=== PATIENT | female | born 1965 | race Caucasian/White ===

== ENCOUNTER → 2017-01-01 | Day surgery (SDC) | payer BC ==
[~2017-01-01] MED LIST: IMITREX100 MG PO; NAPROSYN EC 50500 MG PO; OMEPRAZOLE20 M1 PO; VITAMIN D50000 UNIT PO
== END | disposition home or self-care (01) ==
LOC: OR 08:38
PROVIDERS: Internal Medicine Gastroenterology
PROC: 0D738ZZ Dilation of Lower Esophagus, Via Natural or Artificial Opening Endoscopic (ICD-10-PCS; 2017-01-01)
PROC: 0D748ZZ Dilation of Esophagogastric Junction, Via Natural or Artificial Opening Endoscopic (ICD-10-PCS; principal; 2017-01-01 14:30)
DX: K22.2 Esophageal obstruction (principal); K44.9 Diaphragmatic hernia without obstruction or gangrene; K21.9 Gastro-esophageal reflux disease without esophagitis; G43.909 Migraine, unspecified, not intractable, without status migrainosus; M19.90 Unspecified osteoarthritis, unspecified site; E66.3 Overweight; Z68.29 Body mass index [BMI] 29.0-29.9, adult; Z86.73 Personal history of transient ischemic attack (TIA), and cerebral infarction without residual deficits; Z83.3 Family history of diabetes mellitus; Z82.49 Family history of ischemic heart disease and other diseases of the circulatory system; Z88.2 Allergy status to sulfonamides; Z79.899 Other long term (current) drug therapy; Z98.51 Tubal ligation status; Z98.890 Other specified postprocedural states
CPT/HCPCS: J2250; J3010; J7030

== ENCOUNTER → 2017-01-15 | Day surgery (SDC) | payer BC ==
[~2017-01-15] VITALS: Ht 160 cm; Wt 74.8 kg
== END | disposition home or self-care (01) ==
LOC: OR 06:33
PROVIDERS: Internal Medicine Gastroenterology
PROC: 0DJD8ZZ Inspection of Lower Intestinal Tract, Via Natural or Artificial Opening Endoscopic (ICD-10-PCS; principal; 2017-01-15 08:00)
DX: Z12.11 Encounter for screening for malignant neoplasm of colon (principal); K64.0 First degree hemorrhoids; M19.90 Unspecified osteoarthritis, unspecified site; Z88.2 Allergy status to sulfonamides; Z79.52 Long term (current) use of systemic steroids; Z79.899 Other long term (current) drug therapy; Z98.51 Tubal ligation status; Z98.818 Other dental procedure status; Z87.19 Personal history of other diseases of the digestive system; Z86.73 Personal history of transient ischemic attack (TIA), and cerebral infarction without residual deficits
CPT/HCPCS: J7030

== ENCOUNTER → 2021-04-29 | Outpatient (CLI) | payer BC | LOC: US 04-17 08:00 | DX: R74.8 Abnormal levels of other serum enzymes (principal); K76.0 Fatty (change of) liver, not elsewhere classified | CPT/HCPCS: 76705 ==

== ENCOUNTER → 2021-05-28 | Outpatient (CLI) | payer BC ==
[2021-05-28 10:22] LABS: HEMOGLOBIN 13.7 gm/dl (12.3-15.3); RED BLOOD COUNT 4.46 M/UL (4.00-5.10); WHITE BLOOD COUNT 4.6 K/UL (4.5-11.0)
[2021-05-28 11:07] LABS: BUN/CREATININE RATIO 12 (0-10)
[2021-05-29 17:09] LABS: ENDOMYSIAL ANTIBODY IGA Negative (Negative); IMMUNOGLOBULIN A, QN, SERUM 185 mg/dL (87-352); T-TRANSGLUTAMINASE (TTG) IGA <2 U/mL (0-3); T-TRANSGLUTAMINASE (TTG) IGG <2 U/mL (0-5)
[2021-05-30 04:09] LABS: (LD) FRACTION 1 19 % (17-32); (LD) FRACTION 2 27 % (25-40); (LD) FRACTION 3 20 % (17-27); (LD) FRACTION 4 9 % (5-13); (LD) FRACTION 5 25 % (4-20); CK-BB 0 % (0); CK-MB 0 % (0-3); CK-MM 100 % (97-100); LDH 163 IU/L (119-226); MACRO TYPE 1 0 % (Not Observed); MACRO TYPE 2 0 % (Not Observed)
== END ==
LOC: LAB 08:45
PROVIDERS: Nurse Practitioner Family
DX: R07.9 Chest pain, unspecified (principal); R06.02 Shortness of breath; R13.10 Dysphagia, unspecified; R14.0 Abdominal distension (gaseous)
CPT/HCPCS: 36415; 71046; 80053; 82550; 82552; 82784; 83615; 83625; 84439; 84443; 85025

== ENCOUNTER → 2021-06-20 | Outpatient (CLI) | payer BC | LOC: MAMO 13:58 | DX: Z12.31 Encounter for screening mammogram for malignant neoplasm of breast (principal) | CPT/HCPCS: 77063; 77067 ==

== ENCOUNTER → 2021-07-31 | Day surgery (SDC) | payer BC ==
[~2021-07-31] MED LIST changes: +AMITRIPTYLINE H50 MG PO; +CRESTOR10 MG PO; +HYDROCHLOROTH12.5 M1 PO; +LAMOTRIGINE25 MG PO; +LOSARTAN POTASS50 MG PO; +OMEPRAZOLE20 M2 PO; +ST. JOSEPH ASPI81 MG PO; +WAL-ZYR10 M1 PO; +XANAX0.25 MG PO
== END | disposition home or self-care (01) ==
LOC: OR 07:27
DX: K22.2 Esophageal obstruction (principal); K21.00 Gastro-esophageal reflux disease with esophagitis, without bleeding; K44.9 Diaphragmatic hernia without obstruction or gangrene; K76.0 Fatty (change of) liver, not elsewhere classified; E66.9 Obesity, unspecified; Z88.2 Allergy status to sulfonamides; Z79.82 Long term (current) use of aspirin; Z98.51 Tubal ligation status; Z68.31 Body mass index [BMI] 31.0-31.9, adult; I10 Essential (primary) hypertension; E78.5 Hyperlipidemia, unspecified; K22.4 Dyskinesia of esophagus
CPT/HCPCS: J2704; J7040